=== PATIENT | male | born 1975 | race Two or more races ===

== ENCOUNTER 2019-03-06 19:40 | Emergency (ER) | payer MEDICAID, OTHER ==
[~2019-03-06] VITALS: Ht 172.7 cm; Wt 89.8 kg
[2019-03-06] MEDS ORDERED: FLUORESCEIN SOD 1 MG TEST STRIP LEFTEYE ONE (21:15)
[2019-03-06] MEDS ORDERED: TETRACAINE HCL 0.5% OPTH(EYE) SOLN 4ML LEFTEYE ONE (21:15)
[2019-03-06 21:30] VITALS: BP 154/83
== END 2019-03-06 21:56 | disposition home or self-care (01) ==
LOC: ER 19:45
DX: T15.02XA Foreign body in cornea, left eye, initial encounter (principal); X58.XXXA Exposure to other specified factors, initial encounter; Y93.89 Activity, other specified; Y99.8 Other external cause status; Y92.89 Other specified places as the place of occurrence of the external cause
CPT/HCPCS: 65220